=== PATIENT | male | born 1960 | race Caucasian/White ===

== ENCOUNTER 2018-10-22 17:17 | Emergency (ER) | payer BC ==
--- NOTE | 2018-10-22 17:44 | Emergency Department Record ---
History of Present Illness - General Chief Complaint: Hypertension Stated Complaint: HIGH BLOOD PRESSURE Time Seen by Provider: 10/22/18 17:36 Source: Patient Mode of Arrival: Ambulatory Limitations: No limitations - History of Present Illness Initial Comments: 58 yo male presents with a concern about his blood pressure. He was diagnosed with hypertension in July of 2017. He was placed on Lisinopril by Dr Corona at that time. His blood pressure was well controlled on the Lisinopril. In discussion with his doctor he took himself off the medication and maintained controlled blood pressures. He takes his blood pressure twice a week. He blood pressure has been about 140/90 recently concerning him. He restarted his Lisinopril today. His last does was a few weeks ago. He would take it PRN if it was elevated. NO chest pain, edema, shortness of breath. He gets occasional headaches. No vision changes. MD Complaint: Other (Elevated Blood pressure, asymptomatic. ) Onset/Timin -: Days(s) Timing: Awoke with symptoms Description: Other History of Same: Yes History of Trauma: No Severity: Mild Improves With: Nothing Worsens With: Nothing Associated Symptoms: Other - Evans Coma Scale Eye Response: (4) Open spontaneously Motor Response: (6) Obeys commands Verbal Response: (5) Oriented Evans Total: 15 - Related Data Home Medications Medication Instructions Recorded Confirmed Last Taken Budesonide [Uceris] 33.4 gm RC ASDIR 10/22/18 10/22/18 Unknown Allergies Allergy/AdvReac Type Severity Reaction Status Date / Time Penicillins Allergy Intermediate RASH Unverified 08/30/18 18:22 Travel Screening - Travel/Exposure Within Last 30 Days Have you traveled within the last 30 days?: No Review of Systems Constitutional: Denies: Chills, Fever, Malaise, Weakness Eyes: Denies: Eye discharge ENT: Denies: Congestion, Throat pain Respiratory: Denies: Cough Cardiovascular: Denies: Chest pain, Syncope Endocrine: Denies: Fatigue Gastrointestinal: Denies: Abdominal pain, Diarrhea, Nausea, Vomiting Genitourinary: Denies: Dysuria, Frequency Musculoskeletal: Denies: Arthralgia, Myalgia Skin: Denies: Bruising, Change in color, Rash Neurological: Reports: Headache. Denies: Abnormal gait, Confusion, Numbness, Seizure, Tingling, Tremors, Vertigo, Weakness Psychiatric: Denies: Anxiety Hematological/Lymphatic: Denies: Easy bleeding, Easy bruising Past Medical History - SOCIAL HISTORY Smoking Status: Former smoker Alcohol Use: Occasional, Heavy Drug Use Detail:: Marijuana - RESPIRATORY Hx Respiratory Disorders: No - CARDIOVASCULAR Hx Cardio Disorders: Yes Hx Hypertension: Yes - NEURO Hx Neuro Disorders: No - GI Hx GI Disorders: Yes Comment:: ulcerative colitis AND probs with j puchitis. - Hx Genitourinary Disorders: No - ENDOCRINE Hx Endocrine Disorders: No - MUSCULOSKELETAL Hx Musculoskeletal Disorders: No - PSYCH Hx Psych Problems: No - HEMATOLOGY/ONCOLOGY Hx Hematology/Oncology Disorders: No Comment:: recent PSA 4.5 Family Medical History Any Significant Family History?: Yes Hx Cancer: Mother Hx HTN: Father Physical Exam - General General Appearance: Alert, Oriented x3, Cooperative, No acute distress Limitations: No limitations - Head Head exam: Atraumatic, Normal inspection - Eye Eye exam: Normal appearance, PERRL, EOMI. negative: Conjunctival injection, Nystagmus, Periorbital swelling, Scleral icterus - ENT ENT exam: Normal exam, Mucous membranes moist, Normal orophraynx Ear exam: Normal external inspection Nasal Exam: Normal inspection Mouth exam: Normal external inspection - Neck Neck exam: Normal inspection. negative: Thyromegaly - Respiratory Respiratory exam: Normal lung sounds bilaterally. negative: Respiratory distress - Cardiovascular Cardiovascular Exam: Regular rate, Normal rhythm, Normal heart sounds Peripheral Pulses: 2+: Radial (R), Radial (L) - Rectal Rectal exam: Deferred - exam: Deferred - Extremities Extremities exam: Normal inspection - Neurological Neurological exam: Alert, Oriented X3 - Psychiatric Psychiatric exam: Normal affect, Normal mood. negative: Agitated, Anxious - Skin Skin exam: Dry, Intact, Normal color, Warm Course Vital Signs 10/22/18 17:27 Temperature 97.6 F Pulse Rate 60 Respiratory 18 Rate Blood Pressure 141/108 Pulse Ox 97 - Reevaluation(s) Reevaluation #1: The patient and I discussed hypertension short term concerns and fpc concerns. We discussed his current blood pressure and the need for him to take his Lisinopril daily as prescribed and not PRN. We discussed keeping a log as well to show his PCP. 10/22/18 17:51 10/22/18 18:26 The BUN and CR is normal We discussed close follow with DR Corona Medical Decision Making - Lab Data Result diagrams: 10/22/18 17:50 Disposition Disposition: Discharge Clinical Impression: Hypertension Qualifiers: Hypertension type: unspecified Qualified Code(s): I10 - Essential (primary) hypertension Disposition: Home, Self-Care Condition: (1) Good Instructions: Hypertension (ED) Additional Instructions: Restart your Lisinopril everyday Check your blood pressure in the mornings and write it down in a journal Be seen immediately if you have chest pain, dizziness, swelling, shortness of breath. Call Dr Corona to be seen in the next 1-2 weeks after restarting your Lisinopril daily Forms: Patient Portal Access Time of Disposition: 18:25 Quality - Quality Measures Quality Measures: N/A - Blood Pressure Screening Does Patient Have Any of the Following: Active Dx of HTN Blood Pressure Classification: Hypertensive Reading Systolic Measurement: 141 Diastolic Measurement: 108 Screening for High Blood Pressure: Patient Exclusion, Hx of HTN [G9744]
[2018-10-22 18:25] LABS: BLOOD UREA NITROGEN 17 mg/dL (6-20); EST GLOMERULAR FILTRATION RATE > 60 mL/min
[2018-10-22 18:28] LABS: GLUCOSE,RANDOM 99 mg/dL (74-109)
== END 2018-10-22 18:39 | disposition home or self-care (01) ==
LOC: ER 17:17
DX: I10 Essential (primary) hypertension (principal); R51 Headache; Z87.891 Personal history of nicotine dependence
CPT/HCPCS: 80048; 99283

== ENCOUNTER 2019-03-18 11:14 | Day surgery (SDC) | payer BC ==
[2019-03-18] MEDS ORDERED: SEVOFLURANE 250 ML INH ONE (11:15)
[2019-03-18] MEDS ORDERED: FENTANYL PF 100MCG/2ML VIAL IV ONE (11:15)
[2019-03-18] MEDS ORDERED: DEXAMETHASONE 4 MG/ML 1ML VIAL IVP ONE (11:15)
[2019-03-18] MEDS ORDERED: LIDOCAINE 2% MDV (20MG/ML) 20ML VIAL IV ONE (11:15)
[2019-03-18] MEDS ORDERED: ONDANSETRON HCL IV 4 MG/2 ML VIAL IVP ONE (11:15)
[2019-03-18] MEDS ORDERED: PROPOFOL 10 MG/ML VIAL IV ONE (11:15)
[2019-03-18] MEDS ORDERED: MIDAZOLAM HCL 2MG/2ML VIAL IV ONE (11:15)
[2019-03-18] MEDS ORDERED: RINGERS SOLUTION,LACTATED 1,000 ML IV ONE ×3 (12:00→13:43)
[2019-03-18] MEDS ORDERED: BUPIVACAINE 0.25% W/EPI MPF 30ML VIAL SQ ONE (13:34)
--- NOTE | 2019-03-19 09:20 | Operative Note ---
DATE OF SURGERY: 03/18/2019 SURGEON: Luís Crowley D.O. REFERRING PHYSICIAN: Jarvis Corona M.D. PREOPERATIVE DIAGNOSIS: Torn medial meniscus of the left knee. POSTOPERATIVE DIAGNOSES: 1. Torn medial meniscus, left knee. 2. Osteoarthritis, left knee. OPERATION: 1. Arthroscopic partial medial meniscectomy, left knee. 2. Arthroscopic chondroplasty of the medial femoral condyle and trochlea, left knee. PROCEDURE: This 58-year-old male was taken to the operating room and placed in the supine position on the operating room table. General anesthesia was induced, and the left lower extremity was elevated. It was exsanguinated and the tourniquet inflated to 300 mm Hg. Arthroscopic knee loaiza applied. Left knee was prepped with Hibiclens and draped in the usual sterile fashion. An inferolateral portal was established with 4 mm arthroscope, and initial evaluation of the joint demonstrated grade 2 chondromalacia of the trochlea in an area of about 1.5 cm, centering mostly toward the medial side of the center of the trochlea, but the patella demonstrated minimal changes. Chondroplasty was performed to stabilize the articular cartilage there. The medial compartment was entered, and extensive tearing of the medial meniscus was present as was grade 2-3 chondromalacia of the medial femoral condyle. The entire weight-bearing surface was affected. There were two small grade 4 lesions present on the tibial plateau, one in a more linear fashion about a centimeter in length, and the second more like 3-4 mm in size and roughly round in shape. There was some amorphous material within the medial compartment that appeared to be attached to the tear in the medial meniscus, possibly representing degenerative meniscus but, in any event, this was removed. There was a complex horizontal cleavage tear as well as a large flap tear posteriorly. Utilizing the basket forceps and rotating shaver, we resected back to the apex of the tear and then tapered in both directions to a nice, smooth, contoured surface. This was then re-probed and confirmed to be stable. The intercondylar notch was examined and found to be normal. The lateral compartment was entered. No articular cartilage lesions or meniscal tears were present in the lateral compartment. The joint was copiously irrigated, suctioned, and the instruments were removed. The portal was infiltrated with 0.25% Marcaine with epinephrine. Sterile dressings applied, tourniquet and knee loaiza released, and the patient was taken to the recovery room in satisfactory condition. GROSS PATHOLOGY: This patient demonstrated a complex tear of the medial meniscus extending from the posterior attachment, but the root was not involved, and this extended all the way around to about the 8 o'clock position with horizontal cleavage components being noted. Any unstable meniscal fragments were removed. A grade 4 lesion was present on the medial tibial plateau, and grade 3 changes noted throughout the entire weight-bearing surface of the medial femoral condyle, with grade 2 changes noted on the medial side of the trochlea. MICHAEL
== END 2019-03-18 14:40 | disposition home or self-care (01) ==
LOC: SUR 11:14
PROVIDERS: ATTEND Orthopaedic Surgery
DX: S83.232A Complex tear of medial meniscus, current injury, left knee, initial encounter (principal); M17.12 Unilateral primary osteoarthritis, left knee; I10 Essential (primary) hypertension
CPT/HCPCS: J2405; J7120

== ENCOUNTER 2019-10-22 20:55 | Emergency (ER) | payer BC ==
[2019-10-22] MEDS ORDERED: KETOROLAC 30 MG/ML VIAL IM ONE (21:11)
--- NOTE | 2019-10-22 21:16 | Emergency Department Record ---
History of Present Illness - General Chief Complaint: Wound, check Stated Complaint: KNEE REPLACEMENT RED/FEELS SOMETHING ISNT RIGHT Time Seen by Provider: 10/22/19 21:09 Source: Patient Mode of arrival: Ambulatory Limitations: No limitations - History of Present Illness Initial Comments: The patient is here due to being concerned about his L knee replacement. He had a robotic knee replacement yesterday in [place] by Dr. Charlie Schmidt. He went home last evening and today became concerned due to worsening pain to the L knee and swelling. He also is having trouble with his ROM due to pain. The patient became concerned due to those issues and tried to contact the surgeon but was unable to so he came to the ER. The patient has no CP, SOB, thigh or calf pain. MD Complaint: Wound re-check Onset/Timin -: Days(s) - Related Data Home Medications Medication Instructions Recorded Confirmed Last Taken Aspirin 1 tab PO DAILY 10/22/19 10/22/19 Unknown Oxycodone HCl/Acetaminophen 1 - 2 tab PO Q6H PRN 10/22/19 10/22/19 Unknown [Percocet 5mg/325mg] Allergies Allergy/AdvReac Type Severity Reaction Status Date / Time Penicillins Allergy Intermediate RASH Unverified 07/10/19 08:14 NSAIDS (Non-Steroidal AdvReac Intermediate GI Unverified 07/10/19 08:14 Anti-Inflamma UPSET-HX OF ULCERATIVE COLITIS Review of Systems Constitutional: Denies: Chills, Fever, Malaise Eyes: Denies: Eye discharge ENT: Denies: Congestion, Dental pain, Throat pain Respiratory: Denies: Cough, Dyspnea Cardiovascular: Denies: Arrhythmia, Chest pain Endocrine: Reports: Fatigue Past Medical History - SOCIAL HISTORY Smoking Status: Former smoker Alcohol Use Comment: 1 GLASS OF WINE A DAY - RESPIRATORY Hx Respiratory Disorders: Yes Hx Pneumonia: Yes (long ago) Comment:: seasonal allergies-sneezing - CARDIOVASCULAR Hx Cardio Disorders: Yes Hx Hypertension: Yes (Lisinopril good control) Hx Vascular Disease: Yes (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 ulcerative colitis-none recently) - NEURO Hx Neuro Disorders: Yes Hx Dizziness: Yes (quick position changes) Hx Weakness: Yes (left knee, & left hand) - GI Hx GI Disorders: Yes Comment:: ulcerative colitis hx - Hx Genitourinary Disorders: No - ENDOCRINE Hx Endocrine Disorders: No - MUSCULOSKELETAL Hx Musculoskeletal Disorders: Yes Hx Arthritis: Yes (left knee & left hand) - PSYCH Hx Psych Problems: No - HEMATOLOGY/ONCOLOGY Hx Hematology/Oncology Disorders: Yes Hx Blood Transfusions: Yes Hx Blood Transfusion Reaction: No Family Medical History Hx Cancer: Mother Hx HTN: Father Physical Exam - General General Appearance: Alert, Oriented x3, Cooperative, No acute distress (The patient appears very comfortable in no distress and clearly appears nontoxic.) - Head Head exam: Atraumatic, Normocephalic - Eye Eye exam: Normal appearance, PERRL - Neck Neck exam: Normal inspection, Full ROM. negative: Tenderness - Respiratory Respiratory exam: Normal lung sounds bilaterally. negative: Respiratory distress - Cardiovascular Cardiovascular Exam: Regular rate, Normal rhythm, Normal heart sounds - GI/Abdominal GI/Abdominal exam: Soft, Normal bowel sounds. negative: Tenderness - Extremities Extremities exam: Normal capillary refill. negative: Normal inspection (The L knee is mildly swollen with a well approximated surgical area. There is trace erythema to the anterior knee around the surgical site but no warmth. There clearly is no cellulitis at this time.), Calf tenderness, Full ROM, Pedal edema - Neurological Neurological exam: Alert. negative: Motor sensory deficit Course Vital Signs 10/22/19 20:58 Temperature 99.1 F Pulse Rate [ 66 Pulse Ox Probe] Respiratory 20 Rate Blood Pressure 131/81 [Left Arm] Pulse Ox 94 L - Reevaluation(s) Reevaluation #1: The patient is resting comfortably at this time. We did recheck his temp twice over the last hour and it has been 98.2 and 98.4. The patient is feeling better after his Morphine shot and denies any Cp, SOB, GUSMAN, or chills. I did explain to the patient his lab work is WNL's. The patient's WBC is mildly elevated but has no bands and I do believe that is just due to the surgery stress yesterday. His CRP is mildly elevated but is lower than the one we have in the past when the patient was here for an noninfectious process. Additionally the Procalcitonin is negative for any bacterial infection. We have been trying to contact the patient 's surgeon over the last hour but have not been successful. 10/22/19 22:12 Reevaluation #2: We have attempted to contact Dr. Schmidt who is the patient's surgeon for over an hour and did call the office number and his personal pager but have not been successful. I did explain to the patient that I do believe the knee appears stable and not infected. The patient is to call the office in the morning to get an appointment in 1-2 days for recheck and is to proceed to [facility] in the morning for an Orthopedic consultation if he is still concerned about the knee. Dr. Schmidt is on staff at [facility] also. 10/22/19 22:29 Medical Decision Making - Data Complexity MDM Data: Labs Ordered and/or Reviewed - Lab Data Result diagrams: 10/22/19 21:15 10/22/19 21:15 Disposition Disposition: Discharge Clinical Impression: Post-op pain Disposition: Home, Self-Care Condition: (2) Stable Instructions: Acute Wound Care (ED) Additional Instructions: Please continue your home pain medicines and surgical discharge instructions. Please proceed to the ER for any worsening pain, swelling, redness or any fever. Please call Dr. Schmidt in the morning and get an appointment in 1-2 days for recheck. Forms: Patient Portal Access Time of Disposition: 22:29 Quality - Quality Measures Quality Measures: N/A - Blood Pressure Screening View Details: Yes Does Patient Have Any of the Following: No Blood Pressure Classification: Pre-Hypertensive BP Reading Systolic Measurement: 119 Diastolic Measurement: 82 Screening for High Blood Pressure: < Pre-Hypertensive BP, F/U Documented > [G8950] Pre-Hypertensive Follow-up Interventions: Referral to alternative/primary care provider.
[2019-10-22 21:25] LABS: ABSOLUTE NEUTROPHIL COUNT 10.67; BASO % 0.5 % (0-6); EOS % 0.7 % (0-6); GRAN % 72.5 % (47-80); HEMATOCRIT 36.5 % (42.0-52.0); HEMOGLOBIN 12.2 gm/dl (14.0-18.0); LYMPH % 16.9 % (16-45); MEAN CELL VOLUME 91.5 fl (81-97); MEAN CORPUSCULAR HGB CONC 33.4 g/dl (32-36); MONO % 9.4 % (0-9); PLATELET COUNT 277 K/uL (130-400); RED BLOOD COUNT 3.99 M/uL (4.40-5.70); RED CELL DISTRIBUTION WIDTH 12.5 % (11.5-14.5); WHITE BLOOD COUNT W/O DIFF 14.7 K/uL (4.2-12.2)
[2019-10-22 21:26] LABS: MEAN CORPUSCULAR HEMOGLOBIN 30.5 pg (27-33)
[2019-10-22 21:38] LABS: BLOOD UREA NITROGEN 19 mg/dL (6-20); CREATININE 1.1 mg/dL (0.7-1.2); EST GLOMERULAR FILTRATION RATE > 60 mL/min
[2019-10-22 21:41] LABS: GLUCOSE,RANDOM 116 mg/dL (74-109)
[2019-10-22 21:43] LABS: C-REACTIVE PROTEIN 3.01 mg/dL (<0.5)
[2019-10-22] MEDS ORDERED: MORPHINE SULFATE 5 MG/ML VIAL IM ONE (21:44)
== END 2019-10-22 22:37 | disposition home or self-care (01) ==
LOC: ER 20:55
DX: T84.84XA Pain due to internal orthopedic prosthetic devices, implants and grafts, initial encounter (principal); M25.562 Pain in left knee; G89.18 Other acute postprocedural pain; I10 Essential (primary) hypertension; Z87.891 Personal history of nicotine dependence
CPT/HCPCS: 80048; 84145; 85025; 86140; 96372; 99284